=== PATIENT | female | born 1985 | race Caucasian/White ===

== ENCOUNTER 2019-01-21 14:46 | Emergency (ER) | payer MEDICAID ==
[2019-01-21 14:56] VITALS: RESP 18
[2019-01-21 16:12] LABS: BASO # 0.1 K/uL (0.0-0.2); BASO % 1.2 % (0.0-2.0); EOS # 0.1 K/uL (0.0-0.7); EOS % 1.1 % (0.0-4.0); LYMPH # 2.3 K/uL (1.0-4.3); LYMPH % 30.6 % (20.0-40.0); MEAN CORPUSCULAR HGB CONC 29.7 g/dL (33.0-37.0); MEAN PLATELET VOLUME 9.4 fL (7.2-11.7); MONO # 0.6 K/uL (0.0-0.8); MONO % 7.8 % (0.0-10.0); NEUT # 4.5 K/uL (1.8-7.0); NEUT % 59.3 % (50.0-75.0); RBC 4.37 Mil/uL (3.80-5.20); RED CELL DISTRIBUTION WIDTH 19.1 % (11.5-14.5); WHITE BLOOD COUNT 7.6 K/uL (4.8-10.8)
[2019-01-21 16:14] LABS: HEMOGLOBIN 7.9 g/dL (11.0-16.0); MEAN CELL VOLUME 60.6 fL (81.0-99.0)
[2019-01-21 16:20] LABS: ALB/GLOB RATIO 1.1 (1.0-2.1); ALBUMIN 4.5 g/dL (3.5-5.0); ALT/SGPT 18 U/L (9-52); AST/SGOT 45 U/L (14-36); BLOOD UREA NITROGEN 15 mg/dL (7-17); GFR NON-AFRICAN AMERICAN > 60
[2019-01-21 16:44] LABS: SQUAMOUS EPITHIAL 10 /hpf (0-5); URINE BACTERIA RARE (<OCC); URINE BILIRUBIN NEGATIVE (NEGATIVE); URINE BLOOD 3+ (NEGATIVE); URINE CLARITY Hazy (Clear); URINE COLOR Yellow (YELLOW); URINE GLUCOSE (UA) NORMAL (Normal); URINE LEUKOCYTE ESTERASE TRACE Leu/uL (Negative); URINE PROTEIN NEGATIVE (NEGATIVE); URINE UROBILINOGEN NORMAL mg/dL (0.2-1.0)
[2019-01-21 16:46] LABS: HCG,QUALITATIVE URINE POSITIVE (NEGATIVE)
--- NOTE | 2019-01-21 17:18 | US ---
Date of service: 01/21/2019 HISTORY: vag bleeding, pelvic pain, preg COMPARISON: None available. TECHNIQUE: Real-time transabdominal pelvic ultrasound was performed. In addition a transvaginal pelvic ultrasound was necessary to better depict pelvic anatomy. FINDINGS: UTERUS: Measures 9.1 x 5.0 x 4.7 cm. Anteverted. ENDOMETRIUM: Measures 1.3 cm in diameter. CERVIX: No cervical abnormality identified. RIGHT OVARY: Measures 2.7 x 2.3 x 2.7 cm. Blood flow is demonstrated. 1.2 x 0.9 x 1.2 cm probable corpus luteal cyst. LEFT OVARY: Measures 2.5 x 1.4 x 2.2 cm. Blood flow is demonstrated. FREE FLUID: No significant free fluid noted. OTHER FINDINGS: None. IMPRESSION: No evidence of intrauterine gestational sac. If indeed the patient is based on serum beta HCG values, the sonographic findings represent either: Very early IUP; embryonic demise; ectopic gestation. Follow-up with serial quantitative serum beta HCG measurements and post OBGYN follow-up as clinically indicated, since ectopic gestation cannot be excluded based only on sonographic findings. 1.2 x 0.9 x 1.2 cm probable left ovarian corpus luteal cyst.
--- NOTE | 2019-01-21 17:53 | C.PDOC ---
History Of Present Illness 33 y/o female presents to ED stating that she had a positive test at home last week and now complains that over the past 2 days, she developed sudden onset of cramping lower abdominal pain, associated with vaginal bleeding. Patient reports initially that the bleeding was heavy but now has slowed down. Denies chest pain, SOB, dizziness, nausea, or vomiting. Time Seen by Provider: 01/21/19 15:03 Chief Complaint (Nursing): Female Genitourinary History Per: Patient History/Exam Limitations: no limitations Onset/Duration Of Symptoms: Days Current Symptoms Are (Timing): Still Present Past Medical History Reviewed: Historical Data, Nursing Documentation, Vital Signs Vital Signs: Last Vital Signs Temp 98.6 F 01/21/19 14:52 Pulse 103 H 01/21/19 14:52 Resp 18 01/21/19 14:52 BP 139/81 01/21/19 14:52 Pulse Ox 100 01/21/19 14:52 Primary Care Provider: Shaik Arguello - Medical History PMH: Anemia, HTN (during ), Hypothyroidism (no medications) Denies: Chronic Kidney Disease Surgical History: Endoscopy - [facility] Procedures ESOPHAGOGASTRODUODENOSCOPY [EGD] W/CLOSED BIOPSY (07/24/14) LAPAROSCOPIC REPAIR OF DIAPHRAGMATIC HRN, ABDOMINAL APPROACH (12/17/14) LAPAROSCOPIC ROBOTIC ASSISTED PROCEDURE (12/17/14) LAPAROSCOPIC VERTICAL (SLEEVE) GASTRECTOMY (12/17/14) OTHER ENDOSCOPY OF SM INTEST (12/17/14) Family History: States: No Known Family Hx - Social History Hx Tobacco Use: No Hx Alcohol Use: Yes Hx Substance Use: No - Immunization History Hx Tetanus Toxoid Vaccination: No Hx Influenza Vaccination: Yes Hx Pneumococcal Vaccination: No Review Of Systems Except As Marked, All Systems Reviewed And Found Negative. Constitutional: Negative for: Fever, Chills Cardiovascular: Negative for: Chest Pain Respiratory: Negative for: Shortness of Breath Gastrointestinal: Positive for: Abdominal Pain. Negative for: Nausea, Vomiting Genitourinary: Positive for: Vaginal Bleeding. Negative for: Dysuria, Hematuria Musculoskeletal: Negative for: Back Pain Neurological: Negative for: Headache, Dizziness Physical Exam - Physical Exam Appears: Non-toxic, No Acute Distress Skin: Warm, Dry Head: Normacephalic Eye(s): bilateral: Normal Inspection, PERRL Oral Mucosa: Moist Neck: Supple Chest: Symmetrical Cardiovascular: Rhythm Regular, No Murmur Respiratory: Normal Breath Sounds, No Rales, No Rhonchi, No Wheezing Gastrointestinal/Abdominal: Soft, No Tenderness, No Guarding, No Rebound Back: No CVA Tenderness Extremity: No Pedal Edema Extremity: Bilateral: Atraumatic, Normal Color And Temperature, Normal ROM Neurological/Psych: Oriented x3, Normal Speech ED Course And Treatment - Laboratory Results Result Diagrams: 01/21/19 16:03 01/21/19 16:03 Lab Results: Total Bilirubin 1.8 mg/dL (0.2-1.3) H 01/21/19 16:03 AST 45 U/L (14-36) H 01/21/19 16:03 ALT 18 U/L (9-52) 01/21/19 16:03 Alkaline Phosphatase 107 U/L (38-126) 01/21/19 16:03 Total Protein 8.5 g/dL (6.3-8.3) H 01/21/19 16:03 Albumin 4.5 g/dL (3.5-5.0) 01/21/19 16:03 Globulin 4.0 gm/dL (2.2-3.9) H 01/21/19 16:03 Albumin/Globulin Ratio 1.1 (1.0-2.1) 01/21/19 16:03 Urine Color Yellow (YELLOW) 01/21/19 16:03 Urine Clarity Hazy (Clear) 01/21/19 16:03 Urine pH 5.0 (5.0-8.0) 01/21/19 16:03 Ur Specific Aldrich 1.023 (1.003-1.030) 01/21/19 16:03 Urine Protein Negative mg/dL (NEGATIVE) 01/21/19 16:03 Urine Glucose (UA) Normal mg/dL (Normal) 01/21/19 16:03 Urine Ketones Negative mg/dL (NEGATIVE) 01/21/19 16:03 Urine Blood 3+ (NEGATIVE) H 01/21/19 16:03 Urine Nitrate Negative (NEGATIVE) 01/21/19 16:03 Urine Bilirubin Negative (NEGATIVE) 01/21/19 16:03 Urine Urobilinogen Normal mg/dL (0.2-1.0) 01/21/19 16:03 Ur Leukocyte Esterase Trace Jerel/uL (Negative) 01/21/19 16:03 Urine WBC (Auto) 9 /hpf (0-5) H 01/21/19 16:03 Urine RBC (Auto) 6 /hpf (0-3) H 01/21/19 16:03 Ur Squamous Epith Cells 10 /hpf (0-5) H 01/21/19 16:03 Urine Bacteria Rare (<OCC) 01/21/19 16:03 Urine HCG, Qual Positive (NEGATIVE) 01/21/19 16:03 Beta HCG, Quant 117.47 mIU/ML 01/21/19 16:03 Urine HCG, Qual Positive (NEGATIVE) 01/21/19 16:03 O2 Sat by Pulse Oximetry: 100 (RA) Pulse Ox Interpretation: Normal - CT Scan/US Abd/Pel/Transvag US Other Rad Studies (CT/US): Read By Radiologist, Radiology Report Reviewed CT/US Interpretation: FINDINGS: UTERUS: Measures 9.1 x 5.0 x 4.7 cm. Anteverted. ENDOMETRIUM: Measures 1.3 cm in diameter. CERVIX: No cervical abnormality identified. RIGHT OVARY: Measures 2.7 x 2.3 x 2.7 cm. Blood flow is demonstrated. 1.2 x 0.9 x 1.2 cm probable corpus luteal cyst. LEFT OVARY: Measures 2.5 x 1.4 x 2.2 cm. Blood flow is demonstrated. FREE FLUID: No significant free fluid noted. OTHER FINDINGS: None. IMPRESSION: No evidence of intrauterine gestational sac. If indeed the patient is based on serum beta HCG values, the sonographic findings represent either: Very early IUP; embryonic demise; ectopic gestation. Follow-up with serial quantitative serum beta HCG measurements and post OBGYN follow-up as clinically indicated, since ectopic gestation cannot be excluded based only on sonographic findings. 1.2 x 0.9 x 1.2 cm probable left ovarian corpus luteal cyst. Medical Decision Making Medical Decision Making: Plan: --Labs --Urinalysis --Urine HCG --Pelvis/Transvaginal US Old records reviewed, patient was seen in the ER in the past, no vaginal bleeding or history of anemia. Patient has had Hgb as low as 5. Results were discussed with the patient. On re-exam, the patient reports improvement of symptoms. Lungs are CTA, heart is RRR, abdomen is soft, non- tender and tolerating PO well. Follow up with the medical doctor within 1-2 days. Return if worsened. Disposition - Disposition Referrals: Bob Shoemaker MD [Medical Doctor] - Disposition: HOME/ ROUTINE Disposition Time: 17:00 Condition: STABLE Additional Instructions: Follow up with the OBGYN within 1-2 days for repeat beta within 24-48 hours. Return if worsened. Instructions: Threatened Miscarriage (DC) Forms: [email or web address] (Romanian) - Clinical Impression Clinical Impression: Threatened - PA / LAUNCH [employer]EWARD / Resident Statement MD/DO has reviewed & agrees with the documentation as recorded. - Scribe Statement The provider has reviewed the documentation as recorded by the Scribe Amaris Melchor All medical record entries made by the Scribe were at my direction and personally dictated by me. I have reviewed the chart and agree that the record a ccurately reflects my personal performance of the history, physical exam, medical decision making, and the department course for this patient. I have also personally directed, reviewed, and agree with the discharge instructions and disposition.
[2019-01-21 19:22] VITALS: BP 135/80; PULSE 79; TEMP 98.2
[2019-01-23 16:32] VITALS: O2SAT 100
== END 2019-01-21 19:22 | disposition home or self-care (01) ==
LOC: C.ER 14:46
DX: O20.0 Threatened abortion (principal); Z3A.00 Weeks of gestation of pregnancy not specified
CPT/HCPCS: 76830; 76856; 80053; 81001; 84702; 84703; 85025; 86850; 86900; 99285; J2792

== ENCOUNTER 2019-01-23 09:42 | Emergency (ER) | payer MEDICAID | END 2019-01-23 11:17 | disposition home or self-care (01) | LOC: C.ER 09:42 ==